=== PATIENT | female | born 1970 ===

== ENCOUNTER 2024-05-05 12:15 | Inpatient (IN) | payer OTHER ==
[~2024-05-05] VITALS: Ht 165.1 cm; Wt 98.9 kg
[2024-05-05] MEDS ORDERED: COZAAR50 MG PO (14:40)
[2024-05-05] MEDS ORDERED: CARVEDILOL6.25 MG (14:40)
[2024-05-05] MEDS ORDERED: ATORVASTATIN CA10 MG PO (14:40)
[2024-05-05 14:41] VITALS: BP 111/69
[2024-05-06 08:26] VITALS: BP 129/78
[2024-05-10] MEDS ORDERED: CEFAZOLIN SODIUM 1,000 MG VIAL ONE (10:24)
[2024-05-10] MEDS ORDERED: SUGAMMADEX SODIUM 200 MG/2 ML VIAL IV ONE (11:43)
[2024-05-10] MEDS ORDERED: GABAPENTIN 300 MG CAPSULE PO SCH (13:00)
[2024-05-10] MEDS ORDERED: PROMETHAZINE HCL 25 MG/ML AMPUL IV SCH (13:00)
[2024-05-10] MEDS ORDERED: MORPHINE SULFATE 4 MG/ML VIAL IV ONE ×2 (13:00→13:30)
[2024-05-10 16:02] VITALS: BP 111/69
[2024-05-10] MEDS ORDERED: MORPHINE SULFATE 4 MG/ML CARTRIDGE IV SCH (18:27)
[2024-05-10 20:34] LABS: HEMATOCRIT 35.3 % (36.0-45.00); HEMOGLOBIN 11.9 g/dL (12.0-15.00); MEAN CELL VOLUME 85.5 fL (80.00-100.00); MEAN CORPUSCULAR HGB CONC 33.9 g/dl (32.0-36.0); PLATELET COUNT 306 K/uL (150-450); RED BLOOD COUNT 4.12 M/uL (4.00-6.00); RED CELL DISTRIBUTION WIDTH 13.7 % (11.5-14.5)
[2024-05-10 23:28] VITALS: BP 118/78
[2024-05-11] MEDS ORDERED: ACETAMINOPHEN 500 MG GEL..CAP PO SCH (02:00)
[2024-05-11 04:30] VITALS: BP 134/79
[2024-05-11] MEDS ORDERED: SIMETHICONE 125 MG CAPSULE PO SCH (05:00)
[2024-05-11] MEDS ORDERED: POLYETHYLENE GLYCOL 3350 17 GM BLIST.PACK PO SCH (05:00)
[2024-05-11 08:00] VITALS: BP 108/68
[2024-05-11] MEDS ORDERED: CARVEDILOL 6.25 MG TABLET PO SCH (09:00)
[2024-05-11] MEDS ORDERED: LOSARTAN POTASSIUM 50 MG TABLET PO SCH (09:00)
[2024-05-11 16:20] VITALS: BP 106/68
[2024-05-11] MEDS ORDERED: ATORVASTATIN CALCIUM 10 MG TABLET PO SCH (21:00)
[2024-05-11 23:36] VITALS: BP 103/66
[2024-05-12] MEDS ORDERED: POLY119PG PO (06:34)
[2024-05-12] MEDS ORDERED: SIMETHICONE125 M1 PO (06:34)
[2024-05-12] MEDS ORDERED: GABAPENTIN300 MG PO (06:34)
[2024-05-12] MEDS ORDERED: PAIN RELIEVER500 M2 PO (06:34)
[2024-05-12 07:52] VITALS: BP 97/64
== END 2024-05-12 08:25 | disposition home or self-care (01) | DRG 743 ==
LOC: OB/GYN 05-10 05:30 → O/R 05-10 05:30 → SURH 05-10 11:00 → OB/GYN 05-10 12:51 → O/R 05-11 09:55 → OB/GYN 05-11 09:56
PROVIDERS: ADMIT Obstetrics & Gynecology; ATTEND Obstetrics & Gynecology
PROC: 0DNU0ZZ Release Omentum, Open Approach (ICD-10-PCS; 2024-05-10)
PROC: 0UN00ZZ Release Right Ovary, Open Approach (ICD-10-PCS; 2024-05-10)
PROC: 0DNW0ZZ Release Peritoneum, Open Approach (ICD-10-PCS; 2024-05-10)
PROC: 0UT20ZZ Resection of Bilateral Ovaries, Open Approach (ICD-10-PCS; principal; 2024-05-10 11:00)
DX: D27.0 Benign neoplasm of right ovary (principal); D27.1 Benign neoplasm of left ovary; N73.6 Female pelvic peritoneal adhesions (postinfective)